=== PATIENT | male | born 1955 | race Caucasian/White ===

== ENCOUNTER → 2023-05-13 | Outpatient (CLI) | payer MEDICARE ==
--- NOTE | 2023-05-15 22:23 | CT ---
EXAMINATION TYPE: CT chest wo con DATE OF EXAM: 05/13/2023 COMPARISON: None HISTORY: cough x [address] DLP: 513.6 mGycm, Automated exposure control for dose reduction was used. CONTRAST: None TECHNIQUE: Axial images were obtained at 5 mm thick sections. Reconstructed images are reviewed on [employer] computer in the coronal plane. FINDINGS: Portion of the thyroid visualized is normal. No suspicious lung nodules or focal infiltrates are present. There are scattered small shotty lymph nodes present. A 1.0 cm lymph node may be in the aortopulmonic window. Series 3 image 22 The ascending aorta diameter at the level of the main pulmonary artery is 3.8 cm. The main pulmonary artery diameter at the bifurcation is 2.6 cm. Mild coronary artery calcif ication is present. Limited CT sections are obtained through the upper abdomen. Abdomen is essentially unremarkable. IMPRESSION: 1. No acute pulmonary process. 2. 1.0 cm lymph node in the aortopulmonic window could be a reactive lymph node. Additional shotty ly mphadenopathy is present. Consider follow-up
== END | disposition home or self-care (01) ==
LOC: RADCTMAIN 15:25
PROVIDERS: ATTEND Family Medicine
DX: R06.02 Shortness of breath (principal); R59.0 Localized enlarged lymph nodes; R05.9 Cough, unspecified
CPT/HCPCS: 71250

== ENCOUNTER → 2024-11-26 | Outpatient (CLI) | payer MEDICARE ==
--- NOTE | 2024-11-26 15:15 | CT ---
EXAMINATION TYPE: CT chest wo con CT DLP: 642.70 mGycm, Automated exposure control for dose reduction was used. DATE OF EXAM: 11/26/2024 2:59 PM COMPARISON: CT chest 05/13/2023 CLINICAL INDICATION:Male, 69 years old with history of R59.0 LOCALIZED ENLARGED LYMPH NODES; [facility], TECHNIQUE: Multiple axial images were obtained through the chest without IV contrast. Lack of IV or o ral contrast limits evaluation of solid and hollow organ viscera. . Coronal and sagittal reformats re viewed. FINDINGS: LUNGS/ PLEURA: No pleural effusion, pneumothorax, focal consolidation. Stable left upper lobe 3.1 mm pulmonary nodule (series 4, image 16). Stable 4.5 mm nodule along the left major fissure within the l eft lower lobe (series 4, image 33). Stable right anterior mid lung 4.1 mm pulmonary nodule (series 4 , image 34). Stable left lower lobe 3.9 mm pulmonary nodule (series 4, image 47). No new or enlarging pulmonary nodules. AIRWAY: Patent and unremarkable.. HEART: Cardiomegaly is demonstrated.No pericardial effusion. Mild coronary artery calcifications pres ent. MEDIASTINUM: Stable left paratracheal lymph node measuring 9 mm short axis. Stable AP window lymph no de measuring 9 mm short axis. VASCULATURE: No aortic aneurysm. Mild atherosclerotic calcification of the aorta and its branches. MUSCULOSKELETAL: No acute osseous abnormalities. DISH of the thoracic spine. SOFT TISSUES/LYMPH NODES: Minimal bilateral gynecomastia. LOWER NECK: No significant findings. UPPER ABDOMEN: Diffuse low-attenuation to the liver parenchyma. IMPRESSION: 1. No acute thoracic process. 2. Couple of stable subcentimeter prominent mediastinal lymph nodes. Favored to be benign. 3. Few stable pulmonary nodules measuring less than 5 mm. According to Fleischner's criteria in a low -risk patient no follow-up is recommended. In a high-risk patient consider optional CT chest in 12 mo nths. 4. Hepatic steatosis. [facility], , 11/26/2024 3:13 PM
== END | disposition home or self-care (01) ==
LOC: RADCTMAIN 14:43
PROVIDERS: ATTEND Family Medicine
DX: R91.8 Other nonspecific abnormal finding of lung field (principal); R59.0 Localized enlarged lymph nodes; K76.0 Fatty (change of) liver, not elsewhere classified
CPT/HCPCS: 71250